=== PATIENT | male | born 1985 | race African-American/Black ===

== ENCOUNTER 2017-08-20 21:02 | Emergency (ER) | payer MEDICAID ==
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
== END 2017-08-20 22:27 | disposition home or self-care (01) ==
LOC: ER 21:02
DX: S00.83XA Contusion of other part of head, initial encounter (principal); S30.0XXA Contusion of lower back and pelvis, initial encounter; Z88.8 Allergy status to other drugs, medicaments and biological substances; Y04.8XXA Assault by other bodily force, initial encounter; Y93.89 Activity, other specified; Y92.89 Other specified places as the place of occurrence of the external cause; Y99.8 Other external cause status
CPT/HCPCS: 99284; 96372; 70486; 72131; J1885; Z7502

== ENCOUNTER 2017-08-21 07:42 | Emergency (ER) | payer MEDICAID ==
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
== END 2017-08-21 08:35 | disposition home or self-care (01) ==
LOC: ER 07:42
DX: S00.83XA Contusion of other part of head, initial encounter (principal); Z88.8 Allergy status to other drugs, medicaments and biological substances; X58.XXXA Exposure to other specified factors, initial encounter; Y93.89 Activity, other specified; Y92.89 Other specified places as the place of occurrence of the external cause; Y99.8 Other external cause status
CPT/HCPCS: Z7502